=== PATIENT | female | born 1995 | race African-American/Black ===

== ENCOUNTER 2021-01-20 21:30 | Emergency (ER) | payer MEDICAID, OTHER ==
[~2021-01-20] VITALS: Ht 167.6 cm; Wt 60.0 kg
[2021-01-20] MEDS ORDERED: LIDOCAINE HCL 1% 20ML VIAL (Pyxis) INJ INFIL ONE (23:00)
[2021-01-20] MEDS ORDERED: CEFTRIAXONE SODIUM 500 MG/VIAL IM ONE (23:00)
[2021-01-20 23:12] LABS: CLARITY URINE CLOUDY (CLEAR); COLOR URINE YELLOW (YELLOW); KETONES URINE NEGATIVE (NEGATIVE); LEUKOCYTE ESTERASE URINE 3+ (NEGATIVE); NITRITE URINE NEGATIVE (NEGATIVE); OCCULT BLOOD URINE 1+ (NEGATIVE); PH URINE 6.5 (4.5-8.0); PROTEIN URINE TRACE (NEGATIVE); SPECIFIC GRAVITY URINE 1.011 (1.005-1.030); UROBILINOGEN URINE 0.2 E.U./dL (0.2-1.0)
[2021-01-20 23:19] VITALS: BP 115/75
[2021-01-20] MEDS ORDERED: DOXY100C2 MT (23:33)
[2021-01-20] MEDS ORDERED: SULF1TAB48 MT (23:33)
[2021-01-23 15:06] LABS: NEISSERIA GONORRHOEAE NAA Positive (Negative)
== END 2021-01-21 00:12 | disposition home or self-care (01) ==
LOC: ER 21:30
DX: A54.02 Gonococcal vulvovaginitis, unspecified (principal); N39.0 Urinary tract infection, site not specified
CPT/HCPCS: 81003; 81025; 87077; 87086; 87186; 87491; 87591; 96372; 99283; J0696; J3490

== ENCOUNTER 2021-02-21 08:09 | Emergency (ER) | payer MEDICAID ==
[~2021-02-21] VITALS: Ht 167.6 cm; Wt 59.0 kg
[~2021-02-21 08:09] MED LIST: DOXY100C2 MT; SULF1TAB48 MT
[2021-02-21 08:14] VITALS: BP 103/63
[2021-02-21] MEDS ORDERED: PYR200 MT (08:24)
[2021-02-21] MEDS ORDERED: NITR-87 MT (08:24)
[2021-02-21] MEDS ORDERED: LIDOCAINE HCL 1% 20ML VIAL (Pyxis) INJ INFIL ONE (08:30)
[2021-02-21] MEDS ORDERED: CEFTRIAXONE SODIUM 1 G/VIAL IM ONE (08:30)
[2021-02-21 08:46] LABS: CLARITY URINE CLEAR (CLEAR); COLOR URINE YELLOW (YELLOW); KETONES URINE TRACE (NEGATIVE); LEUKOCYTE ESTERASE URINE NEGATIVE (NEGATIVE); NITRITE URINE NEGATIVE (NEGATIVE); OCCULT BLOOD URINE NEGATIVE (NEGATIVE); PROTEIN URINE NEGATIVE (NEGATIVE); SPECIFIC GRAVITY URINE 1.025 (1.005-1.030)
[2021-02-21] MEDS ORDERED: DOXY100C2 MT (08:59)
[2021-02-24 08:10] LABS: NEISSERIA GONORRHOEAE NAA Negative (Negative)
== END 2021-02-21 09:50 | disposition home or self-care (01) ==
LOC: ER 08:09
DX: R30.0 Dysuria (principal); F12.90 Cannabis use, unspecified, uncomplicated; Z86.19 Personal history of other infectious and parasitic diseases
CPT/HCPCS: 81003; 81025; 87086; 87491; 87591; 96372; 99283; J0696